=== PATIENT | male | born 1950 | race Caucasian/White ===

== ENCOUNTER 2021-07-19 09:09 | Day surgery (SDC) | payer MEDICARE, BC ==
[~2021-07-19] VITALS: Ht 170.2 cm; Wt 63.6 kg
[2021-07-19 09:37] VITALS: BP 103/68
[2021-07-19] MEDS ORDERED: VENE100T PO (09:38)
[2021-07-19] MEDS ORDERED: ROSU10TA28 PO (09:38)
[2021-07-19] MEDS ORDERED: MULT-1085 PO (09:39)
[2021-07-19] MEDS ORDERED: CALC-1215 PO (09:39)
[2021-07-19] MEDS ORDERED: LIDOcaine 1% W/epiNEPHrine 1:100,000 20ml vial ONE (10:29)
[2021-07-19 11:14] VITALS: BP 107/72
== END 2021-07-19 11:32 | disposition home or self-care (01) ==
LOC: SSTAY O 09:09
PROVIDERS: ATTEND Preventive Medicine Aerospace Medicine
DX: Z45.2 Encounter for adjustment and management of vascular access device (principal); C88.0 Waldenstrom macroglobulinemia
CPT/HCPCS: 36590; J3490

== ENCOUNTER 2022-10-17 09:32 | Outpatient (CLI) | payer MEDICARE, BC ==
[~2022-10-17 09:32] MED LIST: CALC-1215 PO; MULT-1085 PO; ROSU10TA28 PO; VENE100T PO
== END 2022-10-17 23:59 | disposition home or self-care (01) ==
LOC: RAD 09:32
PROVIDERS: ATTEND Nurse Practitioner Primary Care
DX: R00.1 Bradycardia, unspecified (principal); R94.31 Abnormal electrocardiogram [ECG] [EKG]
CPT/HCPCS: 93005